=== PATIENT | female | born 1960 | race Caucasian/White ===

== ENCOUNTER 2017-04-29 14:19 | Emergency (ER) | payer OTHER ==
[~2017-04-29] VITALS: Ht 165.1 cm; Wt 82.6 kg
[~2017-04-29 14:19] MED LIST: AMITRIPTYLINE10 MG PO; ATIVAN1 MG PO; Duoneb 3ML 3 MG/3 ML INH; FLONASE 0.05% 121 EA NAS; LEVAQUIN750 MG PO; MASON NATURAL2000 IU PO; PREDNISONE10 MG PO; SPIRIVA RESPIMAT4 GM INH; SYMBICORT1 AE1 INH; TOPAMAX50 MG PO; TRAZODO50 MG PO; XANAX0.5 MG PO; XOPENEX0.63 MG NEB; ZITHROMAX250 MG PO; ZITHROMAX500 MG PO
[2017-04-29 15:00] LABS: BASO % 0.2 % (0.0-1.0); EOS % 0.3 % (1.0-4.0); HEMATOCRIT 41.9 % (37.0-47.0); HEMOGLOBIN 13.7 g/dl (12.0-16.0); LYMPH # 1.3 10*3/uL (1.3-4.4); LYMPH % 14.5 % (27.0-41.0); MEAN CELL VOLUME 93.1 fl (81.0-99.0); MEAN CORPUSCULAR HGB 30.4 pg (27.0-31.0); MEAN CORPUSCULAR HGB CONC 32.7 g/dl (33.0-37.0); MEAN PLATELET VOLUME 8.8 fl (9.6-12.3); MONO # 0.5 10*3/uL (0.1-1.0); MONO % 5.3 % (3.0-9.0); NEUT # 6.9 10*3/uL (2.3-7.9); NEUT % 79.5 % (47.0-73.0); PLATELET COUNT AUTOMATED 223 10*3/uL (130-400); RED CELL DISTRI WIDTH 12.8 % (0-14.5); WHITE BLOOD COUNT 8.7 10*3/uL (4.8-10.8)
[2017-04-29 15:18] LABS: ALBUMIN 3.7 gm/dl (3.1-4.5); ALKALINE PHOSPHATASE 63 U/L (45-117); BUN 10 mg/dl (7-24); CHLORIDE 100 mmol/L (98-107); CREATININE 0.62 mg/dL (0.55-1.02); POTASSIUM 3.7 mmol/L (3.5-5.1); SGOT/AST 24 IU/L (3-35); SGPT/ALT 29 U/L (12-78); SODIUM 137 mmol/L (136-145)
[2017-04-29 16:34] LABS: BILIRUBIN NEGATIVE (NEGATIVE); BLOOD TRACE-INTACT (NEGATIVE); CLARITY CLEAR (CLEAR); COLOR YELLOW (YELLOW); GLUCOSE NEGATIVE (NEGATIVE); KETONE TRACE (NEGATIVE); LEUKO ESTERASE NEGATIVE (NEGATIVE); NITRITE NEGATIVE (NEGATIVE); SPECIFIC GRAVITY <= 1.005 (1.005-1.030); UROBILINOGEN 0.2 E.U./dl (0.2-1.0)
[2017-04-29 16:45] LABS: BACTERIA 2+
[2017-04-29] MEDS ORDERED: ZOFRAN ODT4 MG SL (16:49)
== END 2017-04-29 18:33 | disposition home or self-care (01) ==
LOC: ED 14:19
PROVIDERS: Physician Assistant
DX: B34.9 Viral infection, unspecified (principal); F41.9 Anxiety disorder, unspecified; F17.200 Nicotine dependence, unspecified, uncomplicated; Z88.0 Allergy status to penicillin

== ENCOUNTER → 2017-10-26 | Outpatient (CLI) | payer OTHER ==
[~2017-10-26] MED LIST changes: +CYCLOBENZAPRINE5 M3 PO; +NAPROSYN500 MG PO; +ZOFRAN ODT4 MG SL
== END | disposition home or self-care (01) ==
LOC: RAD 14:39
DX: M48.061 Spinal stenosis, lumbar region without neurogenic claudication (principal); M25.78 Osteophyte, vertebrae

== ENCOUNTER 2017-10-27 09:17 | Emergency (ER) | payer OTHER ==
[~2017-10-27] VITALS: Ht 165.1 cm; Wt 82.6 kg
[~2017-10-27 09:17] MED LIST changes: -CYCLOBENZAPRINE5 M3 PO; -NAPROSYN500 MG PO
[2017-10-27 10:02] LABS: BASO % 0.4 % (0.0-1.0); EOS % 0.4 % (1.0-4.0); HEMATOCRIT 41.7 % (37.0-47.0); HEMOGLOBIN 13.8 g/dl (12.0-16.0); LYMPH # 1.6 10*3/uL (1.3-4.4); LYMPH % 18.7 % (27.0-41.0); MEAN CELL VOLUME 93.9 fl (81.0-99.0); MEAN CORPUSCULAR HGB 31.1 pg (27.0-31.0); MEAN CORPUSCULAR HGB CONC 33.1 g/dl (33.0-37.0); MEAN PLATELET VOLUME 8.9 fl (9.6-12.3); MONO # 0.5 10*3/uL (0.1-1.0); MONO % 6.5 % (3.0-9.0); NEUT # 6.1 10*3/uL (2.3-7.9); NEUT % 73.6 % (47.0-73.0); PLATELET COUNT AUTOMATED 219 10*3/uL (130-400); RED BLOOD COUNT 4.44 10*6/uL (4.10-5.10); WHITE BLOOD COUNT 8.3 10*3/uL (4.8-10.8)
[2017-10-27 10:19] LABS: ALBUMIN 3.2 gm/dl (3.1-4.5); ALKALINE PHOSPHATASE 65 U/L (45-117); BUN 8 mg/dl (7-24); CHLORIDE 101 mmol/L (98-107); CREATININE 0.52 mg/dL (0.55-1.02); SGOT/AST 17 IU/L (3-35); SGPT/ALT 21 U/L (12-78); SODIUM 136 mmol/L (136-145); TOTAL PROTEIN 6.9 gm/dL (6.4-8.2)
[2017-10-27] MEDS ORDERED: NAPROSYN500 MG PO (11:14)
[2017-10-27] MEDS ORDERED: CYCLOBENZAPRINE5 M3 PO (11:14)
== END 2017-10-27 11:34 | disposition home or self-care (01) ==
LOC: ED 09:17
PROVIDERS: Nurse Practitioner
DX: M54.41 Lumbago with sciatica, right side (principal); M25.551 Pain in right hip; R11.0 Nausea; F17.200 Nicotine dependence, unspecified, uncomplicated; Z88.0 Allergy status to penicillin

== ENCOUNTER 2018-06-01 21:42 | Inpatient (IN) | payer OTHER ==
[~2018-06-01] VITALS: Ht 165.1 cm; Wt 80.5 kg
--- NOTE | ~2018-06-01 | EKG ---
[place], [place] ELECTROCARDIOGRAM REPORT NAME: COURTNEY SILVA UNIT #: [id number] ROOM: 525 DOCTOR: JOANNA DRAFT REPORT BIRTHDATE: [address] [facility] Test Date: 2018-06-01 Test Time: 22:05:51 Pat Name: COURTNEY SILVA Department: Room: [facility] Gender: F Training Manager: GUANAKITO : 1960 Requested By: MELIDA ESCALONA PA-C Order Number: [id number] Reading MD: Herb Craven MD Measurements Intervals [place] Rate: 84 P: 92 MO: 151 QRS: 58 QRSD: 77 T: 58 QT: 380 QTc: 450 Interpretive Statements Sinus rhythm Electronically Signed On 06-07-2018 7:18:00 PST by Herb Craven MD CM:EKGRPT:ELECTROCARDIOGRAM REPORT [id number] MELIDA ESCALONA PA-C EPIPHANY DRAFT REPORT MELIDA ESCALONA PA-C
--- NOTE | ~2018-06-01 | PR ---
[place], [place] PROGRESS NOTE NAME: COURTNEY SILVA UNIT #: [id number] ROOM: 525 DOCTOR: JEREMIAS CASPER MD BIRTHDATE: [birth year] DOS: 06/03/2018 SUBJECTIVE: She has been showing progressive improvement in respiratory symptom in the last 24 hours. The shortness of breath, wheezing, and other symptoms has been resolving, but not completely resolved. She has reported significant improvement in symptoms since admission. OBJECTIVE: VITAL SIGNS: Normal temperature, respiratory rate 17, heart rate of 92, blood pressure 112/66, pulse oxygen saturation was noted as 91-98% saturation on 2 liters nasal cannula. HEENT: Examination shows head was atraumatic. Eyes nonicterus. NECK: Supple. CARDIOVASCULAR: S1, S2 is audible. LUNGS: The patient was noted without any wheezing or crackles. The breaths are noted mildly diminished bilaterally. ABDOMEN: Soft and nontender. EXTREMITIES: Without acute edema. IMPRESSION: 1. The patient continued resolution and improvement was noted with acute exacerbation of chronic obstructive pulmonary disease. Current medical management. 2. Moderate obesity. 3. Nicotine dependence. PLAN OF TREATMENT: The patient could be considered for home discharge for this patient at this time on oral medication such as tapering prednisone, antibiotics, and bronchodilators. She has been counseled again about the need of tobacco cessation in future for the patient and she stated that she ____ nicotine gum for the patient to help with overcome the nicotine withdrawal and will not be smoking cigarettes. Outpatient followup was suggested patient postdischarge as well. [place], [place] PROGRESS NOTE NAME: RICARDOCOURTNEY Laws UNIT #: [id number] ROOM: 525 DOCTOR: JEREMIAS CASPER MD BIRTHDATE: [birth year] JEREMIAS GERAMN MD CM:PNTRANS [id number] JEREMIAS DHILLON MD 06/03/18 1519 interface
--- NOTE | ~2018-06-01 | CON ---
[place], [place] REPORT OF CONSULTATION NAME: COURTNEY SILVA [id number] UNIT #: [id number] ROOM: 525 DOCTOR: MAXI DHILLON MDJEREMIAS BIRTHDATE: [birth year] DOS: 06/02/2018 PULMONARY CONSULTATION, EVALUATION AND MANAGEMENT REQUESTING PHYSICIAN: Herb Craven MD. REASON FOR CONSULTATION: For the assessment of current ongoing abnormal respiratory complaints. HISTORY OF PRESENT ILLNESS: This is a 57-year-old white female patient who presented to the hospital. The patient stated that she has been getting gradually sick for the past few days. She has been using increased amount of cigarette smoking since her mom in the grieving period. She has been noted with significant increased respiratory symptom and was seen by Dr. Linda Craven on Wednesday. She was started on antibiotic and corticosteroids. The patient stated that the symptoms are noted severely worse, now responding to treatment with breathing treatment and use of other medication requiring assessment in the Emergency Room. She presented to the Emergency Room on 06/01/2018 and noted with acute exacerbation of chronic obstructive pulmonary disease and hospitalized for further medical management. She does have symptoms of cough, which has been noted [id number], nonproductive with wheezing, tightness in the chest, which are noted severe. She does have symptoms of shortness of breath that occurs with mild exertion. Wheezing was also reported continuous. REVIEW OF SYSTEMS: CONSTITUTIONAL: Fatigue and tiredness reported. Denies symptoms of fever or chills. EYES: Denies burning, redness, or tenderness. EARS, NOSE, THROAT SYMPTOMS: Denies sore throat, hoarseness, otalgia, postnasal drainage or epistaxis. CARDIOVASCULAR: Denies anginal pain, edema, or pain in the lower extremity. GASTROINTESTINAL: Denies dysphagia, nausea, vomiting, diarrhea, abdominal pain, hematemesis, melena, or hematochezia. GENITOURINARY: Denies dysuria, suprapubic pain, or hematuria. MUSCULOSKELETAL: Denies acute joint pain, redness, or tenderness. SKIN: Denies abnormal lesions or rashes. Remaining systems were reviewed, they were noted all negative. PAST MEDICAL HISTORY: Known with history of: 1. COPD. 2. Chronic nicotine dependency. 3. Hypothyroidism. 4. Moderate obesity. 5. General anxiety disorder and depression. 6. Hyperlipidemia. PAST SURGICAL HISTORY: Noted with past: 1. Bronchoscopy. 2. Colonoscopy. 3. Partial hysterectomy. [place], [place] REPORT OF CONSULTATION NAME: COURTNEY SILVA [facility] [id number] UNIT #: [id number] ROOM: [facility] DOCTOR: JEREMIAS CASPER MD BIRTHDATE: [birth year] SOCIAL HISTORY: The patient stated that she is currently , lives at home. Denies history of alcohol use, illicit drug use. Tobacco use noted since younger age, smoking a pack or more of cigarettes per day. She has history of use of marijuana as well. FAMILY HISTORY: Father at age 77 due to complications of pancreatic cancer with history of mitral valve disease as well. The mother recently at the age of 7777 years old from some blood disease. HOME MEDICATIONS: Listed use of: 1. Spiriva Respimat. 2. Trazodone. 3. Albuterol sulfate with use of nebulizer. DRUG ALLERGIES: REPORTED ALLERGY TO PENICILLINS. PHYSICAL EXAMINATION: GENERAL: The patient is a 57-year-old white female currently noted awake and alert without any acute distress. Height of 5 feet 5 inches, weight of 177 pounds, BMI 29. VITAL SIGNS: Normal temperature, respiratory rate of 30 on admission, currently 17; heart rate of 102-89; blood pressure is 170/78-112/76. Pulse oxygen saturation noted on 2 liters nasal cannula 95% saturation. HEENT: Head is atraumatic. Eyes nonicterus. NECK: Supple. CARDIOVASCULAR: S1, S2 is audible. LUNGS: Noted with diffuse expiratory wheezing of the lungs bilaterally with decreased air entry. ABDOMEN: Soft, obese, and nontender. Bowel sounds are present. EXTREMITIES: No acute edema. MUSCULOSKELETAL: Without acute deformities. CENTRAL NERVOUS SYSTEM: Cranial nerves 2-12 are intact. LABORATORY DATA: CBC yesterday on admission was noted to be normal. The lactic acid yesterday was normal. PT/PTT yesterday in the Emergency Room was also noted normal. CMP on 06/01/2018, glucose 107, BUN normal, creatinine was normal. Influenza A and B, nasal washing antigens were negative. The troponin second set and third set were noted as normal. BMP on 06/02/2018, glucose 174, BUN normal, creatinine was normal. The chest x-ray that was done, two-view, on 06/01/2008, shows hyperinflation of the lung without any acute pulmonary infiltration. IMPRESSION: The patient who has been noted with: 1. Progression of the respiratory symptom related to acute exacerbation of chronic obstructive pulmonary disease, acute bronchitis, resulting in hospitalization. 2. Longstanding tobacco use as well. 3. The patient with a history of general anxiety and depression. [place], [place] REPORT OF CONSULTATION NAME: COURTNEY SILVA UNIT #: [id number] ROOM: [facility] DOCTOR: MAXI DHILLON MD,JEREMIAS BIRTHDATE: [birth year] PLAN OF TREATMENT: She has been continued with bronchodilator, at this time the same dose DuoNeb every 4 hours while awake, the Solu-Medrol at this time. Continue the same dose of 60 mg q.8 hours, reduction dose will be ordered based on the progression of the illness. Continue antibiotics, bronchodilators and other treatment plan and management. Usual care. Tobacco cessation counseling has been done with the patient. Use of nicotine replacement patches in case of any nicotine withdrawal symptoms or Nicotrol inhaler, which has been ordered for this patient for that. Usual care. Further treatment changes will be ordered based on progression of the illness. JEREMIAS GERMAN MD CM:CONSTR:REPORT OF CONSULTATION [id number] 06/02/18 1205 interface
[2018-06-01 21:42] VITALS: BP 135/77
[~2018-06-01 21:42] MED LIST changes: +CYCLOBENZAPRINE5 M3 PO; +NAPROSYN500 MG PO
[2018-06-01 21:55] VITALS: BP 111/74
[2018-06-01 22:15] VITALS: BP 104/80
[2018-06-01 22:33] LABS: BASO # 0.1 10*3/uL (0.0-0.1); BASO % 0.7 % (0.0-1.0); EOS # 0.5 10*3/uL (0.0-0.4); EOS % 7.2 % (1.0-4.0); HEMATOCRIT 41.4 % (37.0-47.0); HEMOGLOBIN 13.6 g/dl (12.0-16.0); LYMPH # 2.6 10*3/uL (1.3-4.4); LYMPH % 38.2 % (27.0-41.0); MEAN CORPUSCULAR HGB 31.9 pg (27.0-31.0); MEAN CORPUSCULAR HGB CONC 32.9 g/dl (33.0-37.0); MONO # 0.4 10*3/uL (0.1-1.0); MONO % 6.4 % (3.0-9.0); NEUT # 3.2 10*3/uL (2.3-7.9); NEUT % 47.4 % (47.0-73.0); PLATELET COUNT AUTOMATED 222 10*3/uL (130-400); RED BLOOD COUNT 4.27 10*6/uL (4.10-5.10); RED CELL DISTRI WIDTH 13.2 % (0-14.5); WHITE BLOOD COUNT 6.7 10*3/uL (4.8-10.8)
[2018-06-01 22:44] LABS: ACT PARTIAL THROMBO TIME 25.3 SECONDS (20.8-31.5); INTERNATIONAL NORM RATIO 0.9 (2.0-3.5)
[2018-06-01 22:45] VITALS: BP 106/80
[2018-06-01 22:51] LABS: ALBUMIN 3.7 gm/dl (3.1-4.5); ALKALINE PHOSPHATASE 57 U/L (45-117); BUN 12 mg/dl (7-24); CHLORIDE 106 mmol/L (98-107); CREATININE 0.61 mg/dL (0.55-1.02); POTASSIUM 3.9 mmol/L (3.5-5.1); SGOT/AST 18 IU/L (3-35); SGPT/ALT 25 U/L (12-78); SODIUM 138 mmol/L (136-145); TOTAL PROTEIN 6.9 gm/dL (6.4-8.2)
[2018-06-01 22:54] LABS: TROPONIN I < 0.015 ng/ml (<0.045)
[2018-06-01 23:15] VITALS: BP 105/62
[2018-06-01 23:45] VITALS: BP 117/78
[2018-06-02 00:13] VITALS: BP 94/70
[2018-06-02 04:44] LABS: BASO % 0.3 % (0.0-1.0); EOS # 0.1 10*3/uL (0.0-0.4); EOS % 0.8 % (1.0-4.0); HEMATOCRIT 41.4 % (37.0-47.0); HEMOGLOBIN 13.7 g/dl (12.0-16.0); LYMPH # 0.6 10*3/uL (1.3-4.4); LYMPH % 7.9 % (27.0-41.0); MEAN CORPUSCULAR HGB 32.1 pg (27.0-31.0); MEAN CORPUSCULAR HGB CONC 33.1 g/dl (33.0-37.0); MEAN PLATELET VOLUME 8.9 fl (9.6-12.3); MONO # 0.1 10*3/uL (0.1-1.0); MONO % 1.1 % (3.0-9.0); NEUT # 6.6 10*3/uL (2.3-7.9); NEUT % 89.6 % (47.0-73.0); PLATELET COUNT AUTOMATED 207 10*3/uL (130-400); RED BLOOD COUNT 4.27 10*6/uL (4.10-5.10); WHITE BLOOD COUNT 7.3 10*3/uL (4.8-10.8)
[2018-06-02 04:56] LABS: BUN 13 mg/dl (7-24); CHLORIDE 105 mmol/L (98-107); CREATININE 0.63 mg/dL (0.55-1.02); POTASSIUM 3.9 mmol/L (3.5-5.1); SODIUM 139 mmol/L (136-145)
[2018-06-02 05:01] LABS: CHOLESTEROL 205 mg/dL (<200); FREE T4 0.99 ng/dl (0.76-1.46); HDL CHOLESTEROL 83 mg/dl (40-60); LDL CHOLESTEROL 106 mg/dL (9-159); PHOSPHOROUS 2.9 mg/dL (2.5-4.9); TRIGLYCERIDES 80 mg/dl (<150); VLDL CHOLESTEROL 16 mg/dL (6-40)
[2018-06-02 05:07] LABS: THYROID STIM HORMONE (HS) 0.642 uIU/ml (0.358-4.75)
[2018-06-02 05:55] LABS: VITAMIN D, 25-HYDROXY 22.6 ng/mL (30-100)
[2018-06-02 08:00] VITALS: BP 112/76
[2018-06-02 10:06] LABS: BILIRUBIN NEGATIVE (NEGATIVE); BLOOD TRACE-INTACT (NEGATIVE); CLARITY CLEAR (CLEAR); COLOR YELLOW (YELLOW); GLUCOSE 1+ (NEGATIVE); KETONE NEGATIVE (NEGATIVE); LEUKO ESTERASE NEGATIVE (NEGATIVE); NITRITE NEGATIVE (NEGATIVE); SPECIFIC GRAVITY 1.025 (1.005-1.030); UROBILINOGEN 0.2 E.U./dl (0.2-1.0)
[2018-06-02 10:16] LABS: BACTERIA TRACE; EPITHELIAL CELLS 16-20; MUCOUS 1+
[2018-06-02 12:55] VITALS: BP 123/64
[2018-06-02 16:00] VITALS: BP 125/68
[2018-06-02 20:00] VITALS: BP 146/78
[2018-06-03] VITALS: BP 130/63
[2018-06-03 06:39] LABS: BASO % 0.1 % (0.0-1.0); HEMATOCRIT 40.4 % (37.0-47.0); HEMOGLOBIN 12.9 g/dl (12.0-16.0); MEAN CELL VOLUME 97.3 fl (81.0-99.0); MEAN CORPUSCULAR HGB 31.1 pg (27.0-31.0); MEAN CORPUSCULAR HGB CONC 31.9 g/dl (33.0-37.0); MEAN PLATELET VOLUME 9.4 fl (9.6-12.3); MONO # 0.5 10*3/uL (0.1-1.0); MONO % 4.1 % (3.0-9.0); NEUT # 9.5 10*3/uL (2.3-7.9); NEUT % 86.4 % (47.0-73.0); PLATELET COUNT AUTOMATED 221 10*3/uL (130-400); RED BLOOD COUNT 4.15 10*6/uL (4.10-5.10); RED CELL DISTRI WIDTH 12.9 % (0-14.5)
[2018-06-03 07:01] LABS: BUN 12 mg/dl (7-24); CHLORIDE 105 mmol/L (98-107); SODIUM 137 mmol/L (136-145)
[2018-06-03 08:00] VITALS: BP 112/66
[2018-06-03 12:00] VITALS: BP 130/71
[2018-06-03] MEDS ORDERED: LEVAQUIN750 M1 PO (15:55)
[2018-06-03] MEDS ORDERED: MEDROL DOSEPAK4 MG PO (15:55)
== END 2018-06-03 16:05 | disposition home or self-care (01) | DRG 871 ==
LOC: ED 21:42 → EDHOLD 23:21 → 5E 23:21
PROVIDERS: Internal Medicine; Internal Medicine Nephrology; Physician Assistant
DX: A41.9 Sepsis, unspecified organism (principal); J18.9 Pneumonia, unspecified organism; J44.0 Chronic obstructive pulmonary disease with (acute) lower respiratory infection; J44.1 Chronic obstructive pulmonary disease with (acute) exacerbation; R07.9 Chest pain, unspecified; D72.1 Eosinophilia; E83.41 Hypermagnesemia; E66.3 Overweight; J20.9 Acute bronchitis, unspecified; F41.1 Generalized anxiety disorder; R73.9 Hyperglycemia, unspecified; G47.00 Insomnia, unspecified; F32.9 Major depressive disorder, single episode, unspecified; E53.8 Deficiency of other specified B group vitamins; E03.9 Hypothyroidism, unspecified; F17.210 Nicotine dependence, cigarettes, uncomplicated; E78.5 Hyperlipidemia, unspecified; E66.9 Obesity, unspecified; Z82.49 Family history of ischemic heart disease and other diseases of the circulatory system; Z90.710 Acquired absence of both cervix and uterus; Z88.0 Allergy status to penicillin; Z71.6 Tobacco abuse counseling; Z68.29 Body mass index [BMI] 29.0-29.9, adult

== ENCOUNTER 2018-12-20 06:43 | Emergency (ER) | payer OTHER ==
[~2018-12-20] VITALS: Ht 165.1 cm; Wt 78.5 kg
--- NOTE | ~2018-12-20 | EKG ---
[place], [place] ELECTROCARDIOGRAM REPORT NAME: COURTNEY SILVA UNIT #: [id number] ROOM: DOCTOR: JOANNA DRAFT REPORT BIRTHDATE: [birth year] [facility] Test Date: 2018-12-20 Test Time: 07:52:46 Pat Name: COURTNEY SILVA Department: Room: Gender: F Market Investigator: : 1960 Requested By: DALILA WILL Order Number: [id number] Reading MD: Arnol Shah MD Measurements Intervals [place] Rate: 68 P: 53 NC: 145 QRS: 27 QRSD: 80 T: 59 QT: 408 QTc: 434 Interpretive Statements Sinus rhythm Compared to ECG 06/01/2018 22:05:51 No significant changes Electronically Signed On 12-21-2018 14:44:51 PDT by Arnol Shah MD CM:EKGRPT:ELECTROCARDIOGRAM REPORT [id number] DALILA LEE DRAFT REPORT DALILA WILL DO
[~2018-12-20 06:43] MED LIST changes: +LEVAQUIN750 M1 PO; +MEDROL DOSEPAK4 MG PO
[2018-12-20 08:01] LABS: BASO # 0.1 10*3/uL (0.0-0.1); BASO % 0.9 % (0.0-1.0); EOS # 0.4 10*3/uL (0.0-0.4); EOS % 6.5 % (1.0-4.0); HEMATOCRIT 47.7 % (37.0-47.0); HEMOGLOBIN 15.8 g/dl (12.0-16.0); LYMPH # 1.9 10*3/uL (1.3-4.4); LYMPH % 28.7 % (27.0-41.0); MEAN CELL VOLUME 94.6 fl (81.0-99.0); MEAN CORPUSCULAR HGB 31.3 pg (27.0-31.0); MEAN CORPUSCULAR HGB CONC 33.1 g/dl (33.0-37.0); MEAN PLATELET VOLUME 9.2 fl (9.6-12.3); MONO # 0.4 10*3/uL (0.1-1.0); MONO % 5.9 % (3.0-9.0); NEUT # 3.9 10*3/uL (2.3-7.9); NEUT % 57.8 % (47.0-73.0); PLATELET COUNT AUTOMATED 270 10*3/uL (130-400); RED BLOOD COUNT 5.04 10*6/uL (4.10-5.10); RED CELL DISTRI WIDTH 12.6 % (0-14.5); WHITE BLOOD COUNT 6.7 10*3/uL (4.8-10.8)
[2018-12-20 08:13] LABS: ACT PARTIAL THROMBO TIME 26.8 SECONDS (20.0-32.1); INTERNATIONAL NORM RATIO 0.9 (2.0-3.5)
[2018-12-20 08:20] LABS: ALBUMIN 3.9 gm/dl (3.1-4.5); ALKALINE PHOSPHATASE 65 U/L (45-117); BUN 9 mg/dl (7-24); CHLORIDE 105 mmol/L (98-107); CREATININE 0.66 mg/dL (0.55-1.02); LIPASE 116 U/L (73-393); POTASSIUM 3.7 mmol/L (3.5-5.1); SGOT/AST 14 IU/L (3-35); SGPT/ALT 28 U/L (12-78); SODIUM 140 mmol/L (136-145); TOTAL PROTEIN 7.2 gm/dL (6.4-8.2)
[2018-12-20 08:22] LABS: TROPONIN I < 0.015 ng/ml (<0.045)
[2018-12-20] MEDS ORDERED: ZITHROMAX250 MG PO (08:29)
[2018-12-20] MEDS ORDERED: PREDNISONE50 MG PO (08:29)
[2018-12-20] MEDS ORDERED: Ipratropium Brom3 ML INH (08:34)
== END 2018-12-20 08:42 | disposition home or self-care (01) ==
LOC: ED 06:43
PROVIDERS: Emergency Medicine
DX: J20.9 Acute bronchitis, unspecified (principal); J44.9 Chronic obstructive pulmonary disease, unspecified; E78.5 Hyperlipidemia, unspecified; F17.200 Nicotine dependence, unspecified, uncomplicated; E66.3 Overweight; Z79.899 Other long term (current) drug therapy; Z88.0 Allergy status to penicillin

== ENCOUNTER 2018-12-31 10:57 | Emergency (ER) | payer OTHER ==
[~2018-12-31] VITALS: Wt 81.2 kg
--- NOTE | ~2018-12-31 | EKG ---
[place], [place] ELECTROCARDIOGRAM REPORT NAME: COURTNEY SILVA UNIT #: [id number] ROOM: DOCTOR: EPIPHANY DRAFT REPORT BIRTHDATE: [birth year] [facility] Test Date: 2018-12-31 Test Time: 11:00:12 Pat Name: COURTNEY SILVA Department: Room: Gender: F Online Content Coordinator: : 1960 Requested By: MIKEY GOLDEN Order Number: [id number] Reading MD: Jose Monzon Measurements Intervals [place] Rate: 87 P: 90 LA: 134 QRS: 79 QRSD: 81 T: 74 QT: 369 QTc: 444 Interpretive Statements Sinus rhythm Right atrial enlargement Compared to ECG 12/20/2018 07:52:46 Atrial abnormality now present Electronically Signed On 01-01-2019 12:51:14 PDT by Jose Monzon CM:EKGRPT:ELECTROCARDIOGRAM REPORT [id number] MIKEY MARSHALL DRAFT REPORT MIKEY GOLDEN M.D.
[~2018-12-31 10:57] MED LIST changes: +Ipratropium Brom3 ML INH; +PREDNISONE50 MG PO
[2018-12-31 11:19] LABS: BASO # 0.1 10*3/uL (0.0-0.1); BASO % 0.5 % (0.0-1.0); EOS # 0.4 10*3/uL (0.0-0.4); EOS % 3.7 % (1.0-4.0); HEMATOCRIT 47.1 % (37.0-47.0); HEMOGLOBIN 15.7 g/dl (12.0-16.0); LYMPH # 3.2 10*3/uL (1.3-4.4); LYMPH % 30.5 % (27.0-41.0); MEAN CELL VOLUME 94.2 fl (81.0-99.0); MEAN CORPUSCULAR HGB 31.4 pg (27.0-31.0); MEAN CORPUSCULAR HGB CONC 33.3 g/dl (33.0-37.0); MONO # 0.6 10*3/uL (0.1-1.0); MONO % 6.1 % (3.0-9.0); NEUT # 6.1 10*3/uL (2.3-7.9); NEUT % 58.9 % (47.0-73.0); PLATELET COUNT AUTOMATED 266 10*3/uL (130-400); RED CELL DISTRI WIDTH 12.7 % (0-14.5); WHITE BLOOD COUNT 10.4 10*3/uL (4.8-10.8)
[2018-12-31 11:30] LABS: INTERNATIONAL NORM RATIO 0.9 (2.0-3.5)
[2018-12-31 11:36] LABS: ALBUMIN 3.5 gm/dl (3.1-4.5); ALKALINE PHOSPHATASE 64 U/L (45-117); BUN 10 mg/dl (7-24); CHLORIDE 104 mmol/L (98-107); CREATININE 0.72 mg/dL (0.55-1.02); POTASSIUM 4.5 mmol/L (3.5-5.1); SGOT/AST 12 IU/L (3-35); SGPT/ALT 33 U/L (12-78); SODIUM 141 mmol/L (136-145); TOTAL PROTEIN 6.9 gm/dL (6.4-8.2)
[2018-12-31 11:37] LABS: TROPONIN I < 0.015 ng/ml (<0.045)
[2018-12-31] MEDS ORDERED: PREDNISONE20 M1 PO (12:31)
== END 2018-12-31 12:53 | disposition home or self-care (01) ==
LOC: ED 10:57
PROVIDERS: Emergency Medicine
DX: J44.1 Chronic obstructive pulmonary disease with (acute) exacerbation (principal); F17.200 Nicotine dependence, unspecified, uncomplicated; Z79.899 Other long term (current) drug therapy; Z88.0 Allergy status to penicillin

== ENCOUNTER 2019-03-08 22:54 | Emergency (ER) | payer OTHER ==
[~2019-03-08] VITALS: Ht 165.1 cm; Wt 78.9 kg
--- NOTE | ~2019-03-08 | EKG ---
[place], [place] ELECTROCARDIOGRAM REPORT NAME: COURTNEY SILVA UNIT #: [id number] ROOM: DOCTOR: EPIPHANY DRAFT REPORT BIRTHDATE: [birth year] [facility] Test Date: 2019-03-08 Test Time: 23:24:59 Pat Name: COURTNEY SILVA Department: Room: Gender: F Software Design Manager: : 1960 Requested By: MARTÍN KAUR Order Number: [id number] Reading MD: Ej Turcios MD Measurements Intervals [place] Rate: 82 P: 83 ID: [id number] QRS: 84 QRSD: 83 T: 73 QT: 371 QTc: 434 Interpretive Statements Sinus rhythm Probable left atrial enlargement Anterior infarct, age indeterminate Compared to ECG 01/23/2019 21:32:56 Myocardial infarct finding now present Electronically Signed On 03-09-2019 5:10:17 PDT by Ej Turcios MD CM:EKGRPT:ELECTROCARDIOGRAM REPORT [id number] MARTÍN KAUR MD EPIPHCRISTELA DRAFT REPORT MARTÍN KAUR MD
[~2019-03-08 22:54] MED LIST changes: +PREDNISONE20 M1 PO
[2019-03-08 23:29] LABS: BASO % 0.4 % (0.0-1.0); EOS # 0.3 10*3/uL (0.0-0.4); EOS % 3.6 % (1.0-4.0); HEMATOCRIT 42.9 % (37.0-47.0); HEMOGLOBIN 13.9 g/dl (12.0-16.0); LYMPH # 2.7 10*3/uL (1.3-4.4); LYMPH % 38.3 % (27.0-41.0); MEAN CELL VOLUME 96.6 fl (81.0-99.0); MEAN CORPUSCULAR HGB 31.3 pg (27.0-31.0); MEAN CORPUSCULAR HGB CONC 32.4 g/dl (33.0-37.0); MEAN PLATELET VOLUME 9.1 fl (9.6-12.3); MONO # 0.3 10*3/uL (0.1-1.0); MONO % 4.6 % (3.0-9.0); NEUT # 3.8 10*3/uL (2.3-7.9); NEUT % 52.8 % (47.0-73.0); PLATELET COUNT AUTOMATED 218 10*3/uL (130-400); RED BLOOD COUNT 4.44 10*6/uL (4.10-5.10); RED CELL DISTRI WIDTH 13.8 % (0-14.5); WHITE BLOOD COUNT 7.2 10*3/uL (4.8-10.8)
[2019-03-08 23:40] LABS: ACT PARTIAL THROMBO TIME 26.2 SECONDS (20.0-32.1); INTERNATIONAL NORM RATIO 0.9 (2.0-3.5)
[2019-03-08 23:46] LABS: ALBUMIN 3.5 gm/dl (3.1-4.5); ALKALINE PHOSPHATASE 58 U/L (45-117); BUN 13 mg/dl (7-24); CHLORIDE 105 mmol/L (98-107); CREATININE 0.73 mg/dL (0.55-1.02); POTASSIUM 4.2 mmol/L (3.5-5.1); SGOT/AST 11 IU/L (3-35); SGPT/ALT 18 U/L (12-78); SODIUM 138 mmol/L (136-145); TOTAL PROTEIN 6.7 gm/dL (6.4-8.2)
[2019-03-08 23:50] LABS: TROPONIN I < 0.015 ng/ml (<0.045)
[2019-03-09] MEDS ORDERED: ZITHROMAX250 MG PO (00:45)
[2019-03-09] MEDS ORDERED: PREDNISONE10 MG PO (00:45)
== END 2019-03-09 01:20 | disposition home or self-care (01) ==
LOC: ED 22:54
PROVIDERS: Emergency Medicine Emergency Medical Services
DX: J44.1 Chronic obstructive pulmonary disease with (acute) exacerbation (principal); E78.5 Hyperlipidemia, unspecified; E03.9 Hypothyroidism, unspecified; F17.200 Nicotine dependence, unspecified, uncomplicated; Z88.0 Allergy status to penicillin; Z79.899 Other long term (current) drug therapy; Z90.710 Acquired absence of both cervix and uterus

== ENCOUNTER → 2020-01-30 | Outpatient (CLI) | payer OTHER | END | disposition home or self-care (01) | LOC: COVID19 01:01 | DX: R50.9 Fever, unspecified (principal); Z20.828 Contact with and (suspected) exposure to other viral communicable diseases ==

== ENCOUNTER → 2020-04-23 | Outpatient (CLI) | payer OTHER ==
[~2020-04-23] MED LIST changes: +ASPIRIN81 M1 PO; +ATIVAN0.5 MG PO; +PRILOSEC PO; +SYMB160 INH
--- NOTE | 2020-04-23 12:45 | NUR ---
INFORMED CONSENT OBTAINED FOR LEXISCAN NUCLEAR STRESS TEST WITH DR. ROTHMAN. RESTING EKG NSR WITH A RESTING HR OF 95 WITH BP OF 142/70. LUNGS CLEAR WITH SPO2 OF 95% ON ROOM AIR. PT COMPLETED A 1:00 LEXISCAN PROTOCOL RECEIVING LEXISCAN 0.4 MG IV OVER 10 SECONDS. HAD NO EKG CHANGES. DID C/O FEELING SHORTNESS OF BREATH, CHEST TIGHTNESS, DIZZINESS AND NAUSEA THAT ALL SUBSIDED IN RECOVERY. HAD A PEAK HR OF 118 WITH BP OF 124/64. LAST RECOVERY HR OF 112 WITH BP OF 140/58. AWAITING SCANNING IN STABLE CONDITION.
== END | disposition home or self-care (01) ==
LOC: CARD 00:07
PROVIDERS: ATTEND Internal Medicine
DX: R53.81 Other malaise (principal); R07.2 Precordial pain; R73.03 Prediabetes

== ENCOUNTER → 2020-04-29 | Outpatient (CLI) | payer OTHER | END | disposition home or self-care (01) | LOC: MAMMO 12:49 | PROVIDERS: ATTEND Internal Medicine Nephrology | DX: Z12.31 Encounter for screening mammogram for malignant neoplasm of breast (principal) ==

== ENCOUNTER → 2021-07-08 | Day surgery (SDC) | payer OTHER ==
[~2021-07-08] VITALS: Ht 167.6 cm; Wt 78.2 kg
[2021-07-08 07:14] VITALS: BP 133/74
[2021-07-08 08:54] VITALS: BP 116/68
[2021-07-08 09:06] VITALS: BP 126/67
[2021-07-08 09:25] VITALS: BP 133/72
== END | disposition home or self-care (01) ==
LOC: SDC 07-04 10:15
PROVIDERS: ATTEND Orthopaedic Surgery
DX: G56.03 Carpal tunnel syndrome, bilateral upper limbs (principal); J44.9 Chronic obstructive pulmonary disease, unspecified; F41.9 Anxiety disorder, unspecified; F17.210 Nicotine dependence, cigarettes, uncomplicated; Z90.710 Acquired absence of both cervix and uterus; Z79.899 Other long term (current) drug therapy; Z20.822 Contact with and (suspected) exposure to COVID-19

== ENCOUNTER → 2021-09-15 | Outpatient (CLI) | payer OTHER | END | disposition home or self-care (01) | LOC: RAD 11:45 | PROVIDERS: ATTEND Orthopaedic Surgery | DX: M79.641 Pain in right hand (principal) ==

== ENCOUNTER → 2023-05-01 | Outpatient (CLI) | payer OTHER | END | disposition home or self-care (01) | LOC: US 00:09 | PROVIDERS: ATTEND Internal Medicine Nephrology | DX: R10.9 Unspecified abdominal pain (principal); Z90.710 Acquired absence of both cervix and uterus; Z90.721 Acquired absence of ovaries, unilateral ==

== ENCOUNTER 2023-05-03 14:15 | Emergency (ER) | payer OTHER ==
[~2023-05-03] VITALS: Ht 165.1 cm; Wt 78.5 kg
[2023-05-03 14:40] LABS: BASO # 0.1 10*3/uL (0.0-0.1); BASO % 0.9 % (0.0-1.0); EOS # 0.2 10*3/uL (0.0-0.4); EOS % 3.6 % (1.0-4.0); HEMATOCRIT 43.9 % (37.0-47.0); LYMPH # 2.4 10*3/uL (1.3-4.4); LYMPH % 40.4 % (27.0-41.0); MEAN CELL VOLUME 92.2 fl (81.0-99.0); MEAN CORPUSCULAR HGB 30.9 pg (27.0-31.0); MEAN CORPUSCULAR HGB CONC 33.5 g/dl (33.0-37.0); MEAN PLATELET VOLUME 8.7 fl (9.6-12.3); MONO # 0.5 10*3/uL (0.1-1.0); MONO % 7.9 % (3.0-9.0); NEUT # 2.8 10*3/uL (2.3-7.9); PLATELET COUNT AUTOMATED 244 10*3/uL (130-400); RED BLOOD COUNT 4.76 10*6/uL (4.10-5.10); RED CELL DISTRI WIDTH 12.9 % (0-14.5); WHITE BLOOD COUNT 5.8 10*3/uL (4.8-10.8)
[2023-05-03 15:20] LABS: ALKALINE PHOSPHATASE 50 U/L (46-116); BUN 9 mg/dl (9-23); CHLORIDE 108 mmol/L (98-107); POTASSIUM 4.1 mmol/L (3.4-5.1); SGPT/ALT 22 U/L (10-49); TOTAL PROTEIN 6.3 gm/dL (6.0-8.0)
[2023-05-03 15:35] LABS: BILIRUBIN Negative (Negative); BLOOD Trace-Lysed (Negative); CLARITY Clear (Clear); COLOR Yellow (Yellow); GLUCOSE Negative (Negative); KETONE Trace (Negative); LEUKO ESTERASE Negative (Negative); NITRITE Negative (Negative); PH 5.5 (4.5-8.0); SPECIFIC GRAVITY 1.025 (1.001-1.030)
[2023-05-03 15:58] LABS: BACTERIA TRACE; MUCOUS 1+; RBC 0-2 rbc/hpf (0-2)
== END 2023-05-03 16:50 | disposition home or self-care (01) ==
LOC: ED 14:15
PROVIDERS: Physician Assistant Medical
DX: R10.32 Left lower quadrant pain (principal); J44.9 Chronic obstructive pulmonary disease, unspecified; K21.9 Gastro-esophageal reflux disease without esophagitis; E78.00 Pure hypercholesterolemia, unspecified; F41.9 Anxiety disorder, unspecified; F32.A Depression, unspecified; Z88.0 Allergy status to penicillin; Z90.711 Acquired absence of uterus with remaining cervical stump; Z98.890 Other specified postprocedural states; F17.200 Nicotine dependence, unspecified, uncomplicated; F12.90 Cannabis use, unspecified, uncomplicated

== ENCOUNTER → 2023-05-10 | Outpatient (CLI) | payer OTHER ==
[~2023-05-10] MED LIST changes: +BUSPAR5 MG PO; +OMEPRAZOLE40 MG PO
[2023-05-10 10:19] LABS: BASO % 0.5 % (0.0-1.0); EOS # 0.2 10*3/uL (0.0-0.4); EOS % 3.2 % (1.0-4.0); HEMATOCRIT 28.3 % (37.0-47.0); LYMPH # 2.1 10*3/uL (1.3-4.4); LYMPH % 34.9 % (27.0-41.0); MEAN CELL VOLUME 95.3 fl (81.0-99.0); MEAN CORPUSCULAR HGB CONC 33.6 g/dl (33.0-37.0); MEAN PLATELET VOLUME 9.2 fl (9.6-12.3); MONO # 0.3 10*3/uL (0.1-1.0); MONO % 4.5 % (3.0-9.0); NEUT # 3.4 10*3/uL (2.3-7.9); NEUT % 56.6 % (47.0-73.0); PLATELET COUNT AUTOMATED 270 10*3/uL (130-400); RED BLOOD COUNT 2.97 10*6/uL (4.10-5.10); RED CELL DISTRI WIDTH 14.4 % (0-14.5)
== END | disposition home or self-care (01) ==
LOC: LAB 09:55
PROVIDERS: ATTEND Internal Medicine
DX: D64.9 Anemia, unspecified (principal)

== ENCOUNTER → 2023-05-17 | Day surgery (SDC) | payer OTHER ==
[~2023-05-17] VITALS: Ht 165.1 cm; Wt 82.6 kg
[~2023-05-17] MED LIST changes: +PROVENTIL HFA6.7 GM INH
[2023-05-17 10:18] VITALS: BP 113/60
[2023-05-17 10:33] VITALS: BP 117/60
[2023-05-17 10:48] VITALS: BP 108/78
== END | disposition home or self-care (01) ==
LOC: SDC 05-14 08:45
PROVIDERS: ATTEND Surgery
DX: D64.9 Anemia, unspecified (principal); K57.30 Diverticulosis of large intestine without perforation or abscess without bleeding; K25.9 Gastric ulcer, unspecified as acute or chronic, without hemorrhage or perforation; J43.9 Emphysema, unspecified; K21.9 Gastro-esophageal reflux disease without esophagitis; F41.9 Anxiety disorder, unspecified; F32.A Depression, unspecified; F17.210 Nicotine dependence, cigarettes, uncomplicated; Z90.710 Acquired absence of both cervix and uterus; Z88.0 Allergy status to penicillin; Z79.899 Other long term (current) drug therapy

== ENCOUNTER → 2023-06-15 | Outpatient (CLI) | payer OTHER | END | disposition home or self-care (01) | LOC: US 00:09 | PROVIDERS: ATTEND Student in an Organized Health Care Education/Training Program | DX: I65.23 Occlusion and stenosis of bilateral carotid arteries (principal) ==

== ENCOUNTER → 2023-08-31 | Outpatient (CLI) | payer OTHER | LOC: US 08-04 10:30 | PROVIDERS: ATTEND Neurological Surgery | DX: I65.23 Occlusion and stenosis of bilateral carotid arteries (principal) ==

== ENCOUNTER 2023-12-28 11:11 | Emergency (ER) | payer OTHER ==
[~2023-12-28] VITALS: Ht 165.1 cm; Wt 82.6 kg
[2023-12-28] MEDS ORDERED: MIDODRINE HCL5 M1 PO (11:21)
[2023-12-28] MEDS ORDERED: ALPRAZOLAM0.25 M2 PO (11:22)
[2023-12-28] MEDS ORDERED: CYCLOBENZAPRINE5 M3 PO (11:53)
[2023-12-28] MEDS ORDERED: PREDNISONE50 MG PO (11:53)
[2023-12-28] MEDS ORDERED: methylPREDNISolone sod succ 125 MG VIAL IM ONE (11:55)
[2023-12-28] MEDS ORDERED: Ketorolac Tromethamine 30 MG/ML VIAL IM ONE (11:55)
== END 2023-12-28 12:20 | disposition home or self-care (01) ==
LOC: ED 11:11
DX: M54.41 Lumbago with sciatica, right side (principal); F17.200 Nicotine dependence, unspecified, uncomplicated; Z88.0 Allergy status to penicillin; Z79.899 Other long term (current) drug therapy; Z79.82 Long term (current) use of aspirin; Z90.711 Acquired absence of uterus with remaining cervical stump; Z86.73 Personal history of transient ischemic attack (TIA), and cerebral infarction without residual deficits

== ENCOUNTER → 2024-01-06 | Outpatient (CLI) | payer OTHER ==
[~2024-01-06] MED LIST changes: +ALPRAZOLAM0.25 M2 PO; +MIDODRINE HCL5 M1 PO
== END | disposition home or self-care (01) ==
LOC: RAD 10:29
PROVIDERS: ATTEND Chiropractor
DX: M47.816 Spondylosis without myelopathy or radiculopathy, lumbar region (principal); M48.07 Spinal stenosis, lumbosacral region

== ENCOUNTER → 2024-02-11 | Outpatient (CLI) | payer OTHER | END | disposition home or self-care (01) | LOC: US 02-07 16:00 | PROVIDERS: ATTEND Internal Medicine | DX: M79.604 Pain in right leg (principal) ==

== ENCOUNTER 2024-03-14 10:43 | Emergency (ER) | payer OTHER ==
[~2024-03-14] VITALS: Ht 167.6 cm; Wt 78.0 kg
[2024-03-14 11:13] LABS: BASO % 0.5 % (0.0-1.0); EOS # 0.2 10*3/uL (0.0-0.4); EOS % 2.5 % (1.0-4.0); HEMATOCRIT 47.3 % (37.0-47.0); LYMPH # 2.2 10*3/uL (1.3-4.4); LYMPH % 29.7 % (27.0-41.0); MEAN CELL VOLUME 95.4 fl (81.0-99.0); MEAN CORPUSCULAR HGB CONC 32.6 g/dl (33.0-37.0); MEAN PLATELET VOLUME 8.7 fl (9.6-12.3); MONO # 0.5 10*3/uL (0.1-1.0); MONO % 6.7 % (3.0-9.0); NEUT # 4.4 10*3/uL (2.3-7.9); NEUT % 60.3 % (47.0-73.0); PLATELET COUNT AUTOMATED 257 10*3/uL (130-400); RED BLOOD COUNT 4.96 10*6/uL (4.10-5.10); RED CELL DISTRI WIDTH 13.6 % (0-14.5); WHITE BLOOD COUNT 7.3 10*3/uL (4.8-10.8)
[2024-03-14 11:26] LABS: BILIRUBIN Negative (Negative); BLOOD 1+ (Negative); CLARITY Clear (Clear); COLOR Yellow (Yellow); GLUCOSE Negative (Negative); KETONE Trace (Negative); LEUKO ESTERASE Negative (Negative); NITRITE Negative (Negative); SPECIFIC GRAVITY 1.015 (1.001-1.030); UROBILINOGEN 0.2 E.U./dl (0.0-1.0)
[2024-03-14 11:33] LABS: ALKALINE PHOSPHATASE 60 U/L (46-116); BUN 12 mg/dl (9-23); CHLORIDE 104 mmol/L (98-107); LIPASE 42 U/L (12-53); POTASSIUM 4.2 mmol/L (3.4-5.1); SGPT/ALT 18 U/L (5-49); TOTAL PROTEIN 6.9 gm/dL (6.0-8.0)
[2024-03-14 11:34] LABS: ETHYL ALCOHOL < 3.0 mg/dl (<3)
[2024-03-14 11:34] LABS: URINE AMPHETAMINES Negative (1000ng/ml); URINE BARBITURATES Negative (200ng/ml); URINE BENZODIAZEPINES Negative (200ng/ml); URINE CANNABINOIDS (THC) Positive (50ng/ml); URINE COCAINE Negative (300ng/ml); URINE METHADONE Negative (300ng/ml); URINE OPIATES Negative (300ng/ml); URINE PHENCYCLIDINE Negative (25ng/ml)
[2024-03-14] MEDS ORDERED: LYRICA100 M1 PO (11:37)
[2024-03-14] MEDS ORDERED: CYMBALTA30 MG PO (11:39)
[2024-03-14] MEDS ORDERED: LIDODERM1 EACH T (11:40)
[2024-03-14] MEDS ORDERED: SODIUM CHLORIDE 0.9% 1,000 ML IV ONE (13:30)
== END 2024-03-14 14:51 | disposition home or self-care (01) ==
LOC: ED 10:43
PROVIDERS: Internal Medicine
DX: R42 Dizziness and giddiness (principal); I95.1 Orthostatic hypotension; R11.2 Nausea with vomiting, unspecified; J44.9 Chronic obstructive pulmonary disease, unspecified; K21.9 Gastro-esophageal reflux disease without esophagitis; F41.9 Anxiety disorder, unspecified; F32.A Depression, unspecified; F17.200 Nicotine dependence, unspecified, uncomplicated; F12.90 Cannabis use, unspecified, uncomplicated; Z88.0 Allergy status to penicillin; Z90.711 Acquired absence of uterus with remaining cervical stump; Z98.890 Other specified postprocedural states; Z90.49 Acquired absence of other specified parts of digestive tract; Z79.899 Other long term (current) drug therapy

== ENCOUNTER → 2024-04-04 | Outpatient (CLI) | payer OTHER ==
[~2024-04-04] MED LIST changes: +CYMBALTA30 MG PO; +LIDODERM1 EACH T; +LYRICA100 M1 PO
== END | disposition home or self-care (01) ==
LOC: US 03-30 02:00
PROVIDERS: ATTEND Internal Medicine
DX: I65.23 Occlusion and stenosis of bilateral carotid arteries (principal); Z98.890 Other specified postprocedural states

== ENCOUNTER → 2024-04-12 | Outpatient (CLI) | payer OTHER | END | disposition home or self-care (01) | LOC: US 02:32 | PROVIDERS: ATTEND Internal Medicine | DX: E04.2 Nontoxic multinodular goiter (principal) ==

== ENCOUNTER → 2024-05-01 | Outpatient (CLI) | payer OTHER ==
[~2024-05-01] MED LIST changes: +IOHEXOL 350 MG/ML 100 ML VIAL IV ONE
== END | disposition home or self-care (01) ==
LOC: CT 04-28 00:04
PROVIDERS: ATTEND Urology
DX: R31.9 Hematuria, unspecified (principal); I70.0 Atherosclerosis of aorta

== ENCOUNTER → 2025-01-08 | Outpatient (CLI) | payer OTHER ==
[~2025-01-08] MED LIST changes: +GERI-TUSSIN DM473 M1 PO; -IOHEXOL 350 MG/ML 100 ML VIAL IV ONE; +PREGABALIN100 MG PO; +PROPRANOLOL ER80 MG PO
== END | disposition home or self-care (01) ==
LOC: US 10:19
PROVIDERS: ATTEND Internal Medicine
DX: I65.23 Occlusion and stenosis of bilateral carotid arteries (principal); J44.1 Chronic obstructive pulmonary disease with (acute) exacerbation

== ENCOUNTER → 2025-01-11 | Outpatient (CLI) | payer OTHER | END | disposition home or self-care (01) | LOC: MAMMO 02:06 | PROVIDERS: ATTEND Internal Medicine | DX: Z12.31 Encounter for screening mammogram for malignant neoplasm of breast (principal); R92.313 Mammographic fatty tissue density, bilateral breasts ==